=== PATIENT | male | born 1980 | race Caucasian/White ===

== ENCOUNTER 2019-10-21 10:47 | Outpatient (RCR) | payer OTHER, SELFPAY ==
--- NOTE | 2019-10-21 12:48 | PTOPEVAL ---
Thank you for referring this patient to [facility]. Please review, sign, date and return this plan of care [facility]. I agree with and certify that the following plan of care is medically necessary. Referring Physician Date Admitting Provider: Attending Provider: Loren Reardon NP Referring Provider: *PT Outpatient Evaluation Start: 10/21/19 11:04 Freq: Status: Active Protocol: Document 10/21/19 11:04 MIKAELA (Rec: 10/21/19 11:59 [email or web address] [id number]) Therapy Assessment Status Assessment Status Assessment Status Evaluation Outpatient Past Medical History Neurological History Hx Neurological Disorders No Significant History Cardiovascular History Hx Hypercholesterolemia Yes Hx Hypertension Yes Respiratory History Hx Respiratory Disorders No Significant History Gastrointestinal History Hx Gastrointestinal Disorders No Significant History Genitourinary History Hx Genitourinary Disorders No Significant History Musculoskeletal History Hx Musculoskeletal Disorders No Significant History Hematological History Hx Hematological Disorders No Significant History Endocrine History Hx Endocrine Disorders No Significant History HEENT History Hx HEENT Disorders No Significant History Integumentary History Hx Skin Disorders No Significant History Reproductive History Hx Reproductive Disorders No Significant History Psychosocial History Hx Psychiatric Disorders No Significant History Pain History History of Any Previous or Ongoing No Significant History Instance of Pain Anesthesia History Hx Anesthesia Reactions No Significant History Evaluation Information Problem Diagnosis cervical pain, radiculopathy Onset 02/28/19 Subjective Information Pt. reports carrying chairs in Query Text:As Reported By Patient/ Toya felt a pop in the neck Family and developed pain immdiately after. He went to the doctor later. He reports that pain has stayed consistent. He is never pain free. He reports that his goal is to reduce his neck pain. Diagnostic Tests X-Rays For This Problem Yes: spondylosis MRI For This Problem Yes: bulging disc Pain Assessment Pain Scale Pain Scale Used Numeric (1 - 10) Self Report Pain Assessment Left Neck Reported Pain Level 2 Pain Frequency Chronic,Continuous Current Pain Intensity 2 Lowest Pain Intensity 2 Greatest Pain Intensity 3 Pain Aggravating Factors Sitting Other Pain Aggravating Factors
--- NOTE | 2019-11-27 12:24 | PCPTNOTE ---
11/27/19 - patient called and cancelled therapy visit this date. JTF
--- NOTE | 2019-12-29 08:45 | PCPTNOTE ---
12/29/19 - patient has not been to therapy in several weeks or months. patient has been called and no return calls have been made to finish out the POC. as of this date, patient will be DC'd from skilled PT and all progress towards goals will be taken from the most recent evaluation/note. HUNTER
== END 2019-11-13 15:47 | disposition home or self-care (01) ==
LOC: CHSPT 10:47
PROVIDERS: Visit Provider Nurse Practitioner Family
DX: M47.812 Spondylosis without myelopathy or radiculopathy, cervical region (principal)
CPT/HCPCS: 97014; 97110; 97161; G0283

== ENCOUNTER 2020-01-09 11:51 | Emergency (ER) | payer OTHER, SELFPAY ==
[2020-01-09 12:10] VITALS: BP 135/59; PULSE 89; RESP 16; TEMP 36.6; O2SAT 100
--- NOTE | 2020-01-09 12:47 | ED.GENADULT ---
HPI - General Adult General Chief complaint: Upper Respiratory Infection Stated complaint: Cough Time Seen by Provider: 01/09/20 12:47 Source: patient and RN notes reviewed Mode of arrival: ambulatory Limitations: no limitations History of Present Illness HPI narrative: This is a 39 years old male presented office for evaluation of worsening cough for the last 3-day. Symptoms began intermittently for about a week with head cold. Stated his is currently being treated for walking pneumonia. He smoke about a pack a day currently is taking Chantix to cutting down on smoking.He did not receive influenza vaccine for this season. Related Data Allergies Allergy/AdvReac Type Severity Reaction Status Date / Time No Known Allergies Allergy Mild Verified 01/09/20 12:16 Review of Systems Review of Systems: Narrative: CONSTITUTIONAL: Reports fever, chills, sweats last night ENT: Reports head congestion, slight scratchy throat. Denies ears pain CARDIOVASCULAR: Denies chest pain RESPIRATORY: Reports cough with left side ribs pain when he coughs. GASTROINTESTINAL: Denies abdominal pain, nausea, vomiting, diarrhea. GENITOURINARY: Denies urinary symptoms or discharge SKIN: Denies rash MUSCULOSKELETAL: Denies acute back pain NEUROLOGIC: Denies lightheaded PMFSH Past Medical History Medical History Cervical spondylosis Essential hypertension Hyperlipidemia Nicotine dependence Family History Family History Father Hypertension Family history of coronary artery disease Social History Social History Years smoked: 20 Smoking status: Current every day smoker Tobacco type: cigarettes Alcohol intake: current Substance use: never Additional occupation/education comments: [employer] Gender identity (if verbalized by the patient): Male Spiritual care concerns: No Comments At time of signature, I agree with nursing past medical, surgical, social and family history. There is no relevant family history pertinent to the presenting complaint. Exam Narrative: Exam Narrative: GENERAL: This is a well-nourished, well-developed patient, in no apparent distress. EYES: Sclera clear/white. Vision is grossly intact. EARS: External ears normal, auditory canals clear and without drainage, TMs normal without perforation. Hearing grossly intact. NOSE: External nose normal with no obvious nasal discharge, nares without redness, no rhinorrhea. THROAT: Mucous membranes moist, posterior pharynx clear. NECK: Neck supple, non-tender without lymphadenopathy, masses or thyromegaly. CARDIOVASCULAR: Regular rate and rhythm without murmurs, gallops, or rubs. RESPIRATORY: Clear to auscultation except in the left lower lobe noted diminished breath sound with cough. Breath sounds equal bilaterally. No wheezes, rales, or rhonchi. GASTROINTESTINAL: Abdomen soft, non-tender, nondistended. Bowel sounds are active.No guarding. SKIN: warm, intact with no suspicious lesions or rash, good texture and turgor. NEURO: awake, alert, and oriented to person, place and time. There were no obvious focal neurologic abnormalities. Steady gait [place] Coma Scale Eye Opening: Spontaneous 4 [place] Coma Scale Motor: Obeys Commands 6 [place] Coma Scale Verbal: Oriented 5 Course Vital Signs Vital signs: Vital Signs Temperature 98 F 01/09/20 12:10 Pulse Rate 89 01/09/20 12:10 Respiratory Rate 16 01/09/20 12:10 Blood Pressure 135/59 L 01/09/20 12:10 Pulse Oximetry 100 01/09/20 12:10 Temperature 98 F 01/09/20 12:10 Pulse Rate 89 01/09/20 12:10 Respiratory Rate 16 01/09/20 12:10 Blood Pressure 135/59 L 01/09/20 12:10 Pulse Oximetry 100 01/09/20 12:10 Medical Decision Making MDM Narrative Medical decision making narrative: Discharge instructions reviewed wit
== END 2020-01-09 13:02 | disposition home or self-care (01) ==
PROVIDERS: Emergency Provider Nurse Practitioner
DX: J06.9 Acute upper respiratory infection, unspecified (principal); F17.200 Nicotine dependence, unspecified, uncomplicated
CPT/HCPCS: 99213; G0463

== ENCOUNTER 2020-05-10 09:51 | Outpatient (CLI) | payer OTHER, SELFPAY ==
[2020-05-10 10:03] LABS: Hematocrit 46.6 % (40.0-54.0); Hemoglobin 16.1 g/dL (14.0-18.0); Mean Corpuscular HGB Conc 34.5 g/dL (32.0-36.0); Mean Corpuscular Hemoglobin 31.3 pg (27.0-31.0); Mean Corpuscular Volume 90.7 fL (78.0-102.0); Mean Platelet Volume 9.5 fl (8.7-11.0); Platelet Count Result 233 K/mm3 (150-420); Red Blood Count 5.14 M/mm3 (4.70-6.10); Red Cell Distribution Width 12.1 % (11.6-14.4); White Blood Count 6.7 K/mm3 (4.8-10.8)
[2020-05-10 10:49] LABS: Alanine Aminotransferase 98 U/L (16-63); Albumin Level 4.2 g/dL (3.4-5.0); Alkaline Phosphatase 62 U/L (46-116); Anion Gap 15.5 mmol/L (7-16); Aspartate Amino Transferase 37 U/L (15-37); Bilirubin,Total 0.4 mg/dL (0.00-1.00); Blood Urea Nitrogen 16 mg/dL (7-18); Calcium 9.6 mg/dL (8.5-10.1); Carbon Dioxide 29 mmol/L (21-32); Chloride 99 mmol/L (98-108); Cholesterol 223 mg/dL (0-200); Estimated Glomerular Filt Rate > 60; Glucose 120 mg/dL (70-99); HDL Direct 39 mg/dL (40-60); LDL Cholesterol Calculated 153 mg/dL (<130); Osmolality Calculated 290 mOsm/kg (285-295); Potassium 4.5 mmol/L (3.5-5.1); Sodium 139 mmol/L (136-145); Total Protein 7.4 g/dL (6.4-8.2); Triglycerides 154 mg/dL (0-150)
== END 2020-05-10 09:52 | disposition home or self-care (01) ==
LOC: CHSLAB 09:55
PROVIDERS: PCP Family Medicine; Visit Provider Family Medicine
DX: I10 Essential (primary) hypertension (principal)
CPT/HCPCS: 36415; 80053; 80061; 85027

== ENCOUNTER 2020-06-04 07:13 | Emergency (ER) | payer OTHER, SELFPAY ==
[2020-06-04 07:25] VITALS: BP 108/74; PULSE 95; RESP 20; TEMP 36.4; O2SAT 98
[2020-06-04] MEDS: methylPREDNISolone ACETATE 40 MG/ML VIAL 80 MG IM (07:49)
[2020-06-04 08:02] VITALS: BP 122/75; PULSE 80; RESP 20; TEMP 36.3; O2SAT 99
--- NOTE | 2020-06-04 08:02 | ED.SKABFB ---
HPI - Skin/Abscess/Foreign Bdy General Chief complaint: Skin/Abscess/Foreign Body Stated complaint: rash Source: patient Mode of arrival: ambulatory Limitations: no limitations History of Present Illness HPI narrative: This is a 40-year-old gentleman that presents with some urticarial rash diffuse with some some itching they appear as well it is with no shortness of breath no nausea vomiting no abdominal pain nausea wheezing no fever or chills. Started yesterday, has been using calamine lotion with no relief, and recently started bupropion for smoking cessation and hydrochlorothiazide for elevated blood pressure. complaint: rash Onset (ago): day(s) Location: generalized Severity: moderate Context: new medication Treatments prior to arrival: none Related Data Allergies Allergy/AdvReac Type Severity Reaction Status Date / Time No Known Allergies Allergy Mild Verified 05/10/20 06:59 Review of Systems Review of Systems: All systems reviewed & are unremarkable except as noted in HPI and below PMFSH Past Medical History Medical History Cervical spondylosis Essential hypertension Hyperlipidemia Nicotine dependence Family History Family History Father Hypertension Family history of coronary artery disease Social History Social History Years smoked: 20 Smoking status: Current every day smoker Tobacco type: cigarettes Alcohol intake: current Substance use: never Additional occupation/education comments: [employer] Gender identity (if verbalized by the patient): Male Spiritual care concerns: No Exam Const: General: no acute distress and alert Orientation/consciousness: patient oriented x3 HENMT: Head: normal to inspection Eyes: Conjunctivae: conjunctivae normal Pupils: Equal, round and reactive pupils present Neck: Neck: normal visual inspection and no lymphadenopathy Chest: Chest palpation & inspection: normal inspection of the chest Resp: Effort & Inspection: normal respiratory effort Cardio: Rate: regular rate Rhythm: regular rhythm : Testes: Testes normal Back/Spine/Pelvis: Back: no CVA tenderness Skin: Other: Urticarial rash diffusely Extrem: General: normal to inspection and no pedal edema Psych: Appearance: grossly normal Mental Status: mental status grossly normal Course Course Emergency Course: patient evaluated for [place] rash with no audible wheezing no shortness breath no nausea vomiting or abdominal pain, was given 80 mg of IM Depo-Medrol. Vital Signs Vital signs: Vital Signs Temperature 36.4 C 06/04/20 07:25 Pulse Rate 95 06/04/20 07:25 Respiratory Rate 20 06/04/20 07:25 Blood Pressure 108/74 06/04/20 07:25 Pulse Oximetry 98 06/04/20 07:25 Temperature 36.4 C 06/04/20 07:25 Pulse Rate 95 06/04/20 07:25 Respiratory Rate 20 06/04/20 07:25 Blood Pressure 108/74 06/04/20 07:25 Pulse Oximetry 98 06/04/20 07:25 Critical Care Time Critical Care Time Critical Care Time: No Discharge Plan Discharge Clinical Impression: Urticaria Patient Disposition: Home, Self-Care Condition: Stable Instructions: Antibiotic Form, Urticaria (ED) Additional Instructions: Take medicine as prescribed, I discontinue hydrochlorothiazide to you talk to your primary care physician, uses Zyrtec [id number] daily x1 week. If symptoms persist or worsen follow-up primary care physician or Return to the ER. Prescriptions: New prednisone 20 mg tablet 20 mg PO DAILY 5 Days Qty: 5 RF: 0 famotidine [Pepcid] 20 mg tablet 20 mg PO DAILY Qty: 7 RF: 0 No Action bupropion HCl 150 mg tablet sustained-release 12 hr 150 mg PO BID Qty: 120 RF: 0 hydrochlorothiazide 12.5 mg tablet 12.5 mg PO DAILY Qty: 90 RF: 0 nicotine 21 mg/24 hr pa
== END 2020-06-04 08:11 | disposition home or self-care (01) ==
PROVIDERS: Emergency Provider Emergency Medicine; PCP Family Medicine
DX: L50.9 Urticaria, unspecified (principal)
CPT/HCPCS: 96372; 99283; J1030

== ENCOUNTER 2021-02-03 14:20 | Outpatient (CLI) | payer SELFPAY ==
[2021-02-03 15:20] LABS: SARS-CoV-2 Ag Negative (Negative)
[2021-02-04 01:17] LABS: SARS-CoV-2 RNA PCR Negative
== END 2021-02-03 14:21 | disposition home or self-care (01) ==
PROVIDERS: PCP Family Medicine; Visit Provider Family Medicine
DX: Z20.822 Contact with and (suspected) exposure to COVID-19 (principal)
CPT/HCPCS: 87426; C9803; U0003; U0005

== ENCOUNTER 2021-08-15 10:34 | Outpatient (CLI) | payer BC, SELFPAY ==
[2021-08-15 10:46] LABS: Basophils Absolute Auto 0.04 K/mm3 (0.00-0.10); Basophils Percent Auto 0.6 % (0.0-1.0); Eosinophils Absolute Auto 0.29 K/mm3 (0.02-0.50); Eosinophils Percent Auto 4.1 % (1.0-6.0); Hematocrit 46.8 % (40.0-54.0); Hemoglobin 16.4 g/dL (14.0-18.0); Immature Granulocyte Absolute 0.02 K/mm3 (0.00-0.00); Immature Granulocyte Percent A 0.3 % (0.0-0.0); Lymphocytes Absolute Auto 2.28 K/mm3 (1.10-4.50); Lymphocytes Percent Auto 32.5 % (18.0-42.0); Mean Corpuscular Hemoglobin 31.1 pg (27.0-31.0); Mean Corpuscular Volume 88.6 fL (78.0-102.0); Mean Platelet Volume 9.8 fl (8.7-11.0); Monocytes Percent Auto 7.1 % (2.0-11.0); Neutrophils Absolute Auto 3.9 K/mm3 (1.7-7.2); Neutrophils Percent Auto 55.4 % (50.0-70.0); Platelet Count Result 239 K/mm3 (150-420); Red Blood Count 5.28 M/mm3 (4.70-6.10); Red Cell Distribution Width 11.9 % (11.6-14.4)
[2021-08-15 11:43] LABS: Alanine Aminotransferase 86 U/L (16-63); Albumin Level 4.3 g/dL (3.4-5.0); Alkaline Phosphatase 56 U/L (46-116); Anion Gap 10 mmol/L (8-16); Aspartate Amino Transferase 29 U/L (15-37); Bilirubin,Total 0.4 mg/dL (0.00-1.00); Blood Urea Nitrogen 23 mg/dL (7-18); Calcium 9.5 mg/dL (8.5-10.1); Carbon Dioxide 28 mmol/L (21-32); Chloride 103 mmol/L (98-108); Cholesterol 266 mg/dL (0-200); Estimated Glomerular Filt Rate > 60; Glucose 161 mg/dL (70-99); HDL Direct 31 mg/dL (40-60); LDL Cholesterol Calculated 178 mg/dL (<130); Osmolality Calculated 298 mOsm/kg (285-295); Potassium 4.3 mmol/L (3.5-5.1); Sodium 141 mmol/L (136-145); Total Protein 7.3 g/dL (6.4-8.2); Triglycerides 287 mg/dL (0-150)
[2021-08-16 15:59] LABS: Hemoglobin A1C 6.2 % (<5.7)
[2021-08-17 13:56] LABS: Vitamin D 25 Hydroxy 13 ng/mL (30-100)
== END 2021-08-15 10:35 | disposition home or self-care (01) ==
LOC: CHSLAB 10:36
PROVIDERS: PCP Family Medicine; Visit Provider Nurse Practitioner Family
DX: Z79.899 Other long term (current) drug therapy (principal); R42 Dizziness and giddiness; E78.5 Hyperlipidemia, unspecified; R73.09 Other abnormal glucose
CPT/HCPCS: 36415; 80053; 80061; 82306; 83036; 83735; 85025

== ENCOUNTER 2021-08-17 09:56 | Outpatient (CLI) | payer BC, SELFPAY ==
--- NOTE | ~2021-08-17 | XR_ITS ---
EXAMINATION: XR chest 2V 08/17/2021 10:17 INDICATION: Chest pain, weakness and fatigue PROCEDURE: 2 view chest COMPARISON: 08/27/2017 FINDINGS: The lungs are clear. The cardiomediastinal silhouette is within normal limits. There are no pleural effusions. There is no pneumothorax suspected. IMPRESSION: 1: NO ACUTE CARDIOPULMONARY DISEASE. Reviewed, dictated and finalized at location A.
--- NOTE | 2021-08-17 09:59 | ECG_ITS ---
Measurements Intervals [place] Rate: 80 P: 62 NE: 161 QRS: 27 QRSD: 101 T: 58 QT: 358 QTc: 414 Interpretive Statements SINUS RHYTHM DELAYED PRECORDIAL R/S TRANSITION BORDERLINE ECG Electronically Signed On 08-17-2021 10:09:22 CDT by Doc Castanon D.O.
== END 2021-08-17 09:57 | disposition home or self-care (01) ==
LOC: CHSIMG 09:59
PROVIDERS: PCP Family Medicine; Visit Provider Nurse Practitioner Family
DX: R07.9 Chest pain, unspecified (principal); R42 Dizziness and giddiness
CPT/HCPCS: 71046; 93005

== ENCOUNTER 2022-04-20 09:35 | Outpatient (CLI) | payer BC, SELFPAY ==
[2022-04-20 10:35] LABS: SARS-CoV-2 RNA PCR Positive (Negative)
== END 2022-04-20 09:36 | disposition home or self-care (01) ==
LOC: CHSLAB 09:40
PROVIDERS: PCP Family Medicine; Visit Provider Family Medicine
DX: U07.1 COVID-19 (principal)
CPT/HCPCS: C9803; U0003; U0005

== ENCOUNTER 2024-01-01 08:15 | Outpatient (CLI) | payer BC, SELFPAY ==
[2024-01-01 08:41] LABS: Basophils Absolute Auto 0.06 K/mm3 (0.00-0.10); Basophils Percent Auto 0.6 % (0.0-1.0); Eosinophils Absolute Auto 0.38 K/mm3 (0.02-0.50); Eosinophils Percent Auto 4.1 % (1.0-6.0); Hematocrit 43.8 % (40.0-54.0); Immature Granulocyte Absolute 0.02 K/mm3 (0.00-0.00); Immature Granulocyte Percent A 0.2 % (0.0-0.0); Lymphocytes Absolute Auto 2.34 K/mm3 (1.10-4.50); Lymphocytes Percent Auto 25.3 % (18.0-42.0); Mean Corpuscular HGB Conc 34.2 g/dL (32.0-36.0); Mean Corpuscular Volume 87.6 fL (78.0-102.0); Mean Platelet Volume 9.3 fl (8.7-11.0); Monocytes Absolute Auto 0.72 K/mm3 (0.10-0.90); Monocytes Percent Auto 7.8 % (2.0-11.0); Neutrophils Absolute Auto 5.7 K/mm3 (1.7-7.2); Platelet Count Result 249 K/mm3 (150-420); Red Cell Distribution Width 12.3 % (11.6-14.4); White Blood Count 9.3 K/mm3 (4.8-10.8)
[2024-01-01 09:17] LABS: Alanine Aminotransferase 71 U/L (16-63); Albumin Level 3.8 g/dL (3.4-5.0); Alkaline Phosphatase 65 U/L (46-116); Anion Gap 10 mmol/L (8-16); Aspartate Amino Transferase 34 U/L (15-37); Bilirubin,Total 0.2 mg/dL (0.00-1.00); Blood Urea Nitrogen 22 mg/dL (7-18); Calcium 8.6 mg/dL (8.5-10.1); Carbon Dioxide 25 mmol/L (21-32); Chloride 104 mmol/L (98-108); Cholesterol 174 mg/dL (0-200); Estimated Glomerular Filt Rate > 60; Glucose 123 mg/dL (70-99); HDL Direct 34 mg/dL (40-60); LDL Cholesterol Calculated 91 mg/dL (<130); Osmolality Calculated 292 mOsm/kg (285-295); Potassium 4.4 mmol/L (3.5-5.1); Sodium 139 mmol/L (136-145); Total Protein 6.8 g/dL (6.4-8.2); Triglycerides 247 mg/dL (0-150)
[2024-01-03 12:22] LABS: Vitamin D 25 Hydroxy 17 ng/mL (30-100)
== END 2024-01-01 08:16 | disposition home or self-care (01) ==
LOC: CHSLAB 08:17
PROVIDERS: PCP Family Medicine; Visit Provider Nurse Practitioner Family
DX: E55.9 Vitamin D deficiency, unspecified (principal); E78.5 Hyperlipidemia, unspecified; I10 Essential (primary) hypertension; Z79.899 Other long term (current) drug therapy
CPT/HCPCS: 36415; 80053; 80061; 82306; 85025

== ENCOUNTER 2024-03-03 10:54 | Outpatient (CLI) | payer BC, SELFPAY ==
[2024-03-03 11:49] LABS: Strep Group A RT-PCR NOT DETECTED (Negative)
[2024-03-03 11:58] LABS: SARS-CoV-2 RNA PCR Positive (Negative)
[2024-03-03 12:01] LABS: Influenza A QL RT-PCR Negative (Negative); Influenza B QL RT-PCR Negative (Negative); RSV RNA, RT-PCR Negative (Negative)
== END 2024-03-03 10:55 | disposition home or self-care (01) ==
LOC: CHSLAB 10:55
PROVIDERS: PCP Family Medicine; Visit Provider Family Medicine
DX: U07.1 COVID-19 (principal); R05.9 Cough, unspecified
CPT/HCPCS: 87637; 87651

== ENCOUNTER 2024-12-09 07:56 | Outpatient (CLI) | payer BC, SELFPAY ==
[2024-12-09 08:16] LABS: Hematocrit 42.6 % (40.0-54.0); Hemoglobin 14.5 g/dL (14.0-18.0); Mean Corpuscular Hemoglobin 29.7 pg (27.0-31.0); Mean Corpuscular Volume 87.3 fL (78.0-102.0); Platelet Count Result 239 K/mm3 (150-420); Red Blood Count 4.88 M/mm3 (4.70-6.10); Red Cell Distribution Width 12.2 % (11.6-14.4); White Blood Count 6.2 K/mm3 (4.8-10.8)
[2024-12-09 08:36] LABS: Hemoglobin A1C 5.8 % (<5.7)
[2024-12-09 09:13] LABS: Alanine Aminotransferase 61 U/L (16-63); Albumin Level 3.7 g/dL (3.4-5.0); Alkaline Phosphatase 64 U/L (46-116); Anion Gap 10 mmol/L (4-12); Aspartate Amino Transferase 26 U/L (15-37); Bilirubin,Total 0.3 mg/dL (0.00-1.00); Blood Urea Nitrogen 19 mg/dL (7-18); Calcium 8.7 mg/dL (8.5-10.1); Carbon Dioxide 27 mmol/L (21-32); Chloride 105 mmol/L (98-108); Cholesterol 168 mg/dL (0-200); Estimated Glomerular Filt Rate > 60; Glucose 170 mg/dL (70-99); HDL Direct 43 mg/dL (40-60); LDL Cholesterol Calculated 100 mg/dL (<130); Osmolality Calculated 300 mOsm/kg (285-295); Potassium 4.3 mmol/L (3.5-5.1); Sodium 142 mmol/L (136-145); Total Protein 6.4 g/dL (6.4-8.2); Triglycerides 125 mg/dL (0-150)
[2024-12-09 09:17] LABS: Prostate Specific Antigen 0.6 ng/mL (< OR = 4.0)
[2024-12-09 09:25] LABS: Thyroid Stimulating Hormone Reflex 1.01 u/IU/mL (0.36-3.74)
[2024-12-11 02:13] LABS: Hepatitis B Surface Antigen NON-REACTIVE (NON-REACTIVE)
[2024-12-11 02:14] LABS: Hepatitis A Antibody IgM NON-REACTIVE (NON-REACTIVE); Hepatitis B Core Antibody NON-REACTIVE (NON-REACTIVE); Hepatitis C Virus Antibody NON-REACTIVE (NON-REACTIVE)
== END 2024-12-09 07:57 | disposition home or self-care (01) ==
LOC: CHSLAB 07:59
PROVIDERS: PCP Family Medicine; Visit Provider Nurse Practitioner Family
DX: Z00.00 Encounter for general adult medical examination without abnormal findings (principal); Z12.5 Encounter for screening for malignant neoplasm of prostate; R74.8 Abnormal levels of other serum enzymes
CPT/HCPCS: 36415; 80053; 80061; 80074; 83036; 84153; 84443; 85027; G0103